=== PATIENT | female | born 1955 | race Caucasian/White ===

== ENCOUNTER → 2017-05-28 | Day surgery (SDC) | payer BC ==
[~2017-05-28] MED LIST: ATENOLOL50 MG PO; BENICAR HCT 401 EAC1 PO; CLONIDINE HCL0.1 MG PO; DAILY VITAMIN1 EAC3 PO; ESTRADIOL1 MG PO; FISH OIL PO; HYDROCHLOROTHIA25 MG PO; KLOR-CON 88 MEQ PO; LIDOCAINE HCL 2% LOCAL INJ 5 ML SDV VIAL INJ ONE; MAGNESIUM PO; MIRALAX; PROPOFOL IV EMULSION 10 MG/ML 20 ML VIAL ONE; VALSARTAN PO; VERAPAMIL HCL240 MG PO; VITAMIN D3 PO; XARELTO20 MG
--- NOTE | 2017-05-28 10:27 | Operative Report ---
DATE OF PROCEDURE: May 28, 2017 PROCEDURE PERFORMED: Esophagogastroduodenoscopy. PREOPERATIVE DIAGNOSES 1. Peptic ulcer disease. 2. Reflux esophagitis. POSTOPERATIVE DIAGNOSES 1. Hiatal hernia. 2. Reflux esophagitis. 3. Gastritis throughout the entire stomach lining. PREOPERATIVE MEDICATIONS: Consisted of MAC anesthesia. Using the [employer] video gastroscope, it was into the patient's oropharynx and advanced to the hypopharynx and down to the esophagus. The mucosa in the esophagus was normal. There was a hiatal hernia from 39-41 cm with reflux esophagitis just above it. Biopsy was obtained to rule out Cavazos's esophagus. The stomach was then entered and insufflated with air. The mucosa around the cardia, fundus, body, and antrum was viewed. There was evidence of gastritis throughout the entire stomach with erosions, but no ulcerations. Biopsies were obtained in the antrum, body and fundus of the stomach looking for H. pylori infection. The motility appeared to be normal. The pylorus was visualized and entered. The duodenal bulb and postbulbar duodenum were found to be within normal limits. The endoscope was then withdrawn back up to the stomach. Retroflexion of the EG junction, cardia, fundus below. Again, the hiatal hernia was seen, as well as the gastritis. The endoscope was placed in the body of the stomach, and then slowly withdrawn back up into the esophagus, hypopharynx, oropharynx, and out of the patient's mouth. The procedure was ended. In conclusion, we have findings of gastritis throughout the entire gastric lining, as well as a hiatal hernia with reflux esophagitis. PLAN: The patient will be started on Protonix 40 mg once a day on an empty stomach. Job#: [id number] NE
== END | disposition home or self-care (01) ==
LOC: OR 06:41
PROVIDERS: ATTEND Internal Medicine Gastroenterology
DX: K21.0 Gastro-esophageal reflux disease with esophagitis (principal); K29.70 Gastritis, unspecified, without bleeding; K44.9 Diaphragmatic hernia without obstruction or gangrene; I48.91 Unspecified atrial fibrillation; I10 Essential (primary) hypertension; I25.10 Atherosclerotic heart disease of native coronary artery without angina pectoris; R00.1 Bradycardia, unspecified; I45.10 Unspecified right bundle-branch block; Z88.0 Allergy status to penicillin; Z88.6 Allergy status to analgesic agent; Z88.2 Allergy status to sulfonamides; Z88.8 Allergy status to other drugs, medicaments and biological substances; Z01.810 Encounter for preprocedural cardiovascular examination; Z68.39 Body mass index [BMI] 39.0-39.9, adult
CPT/HCPCS: 43239; 93005; J2001

== ENCOUNTER → 2017-10-21 | Day surgery (SDC) | payer BC ==
[2017-10-13 12:55] LABS: BASOPHILS # (AUTO) 0.1 (0.0-0.1); BASOPHILS % 0.7 % (0.0-1.0); EOSINOPHILS # (AUTO) 0.1 (0.0-0.4); EOSINOPHILS % 0.9 % (0.0-6.0); HEMATOCRIT 42.8 % (34.2-44.1); HEMOGLOBIN 14.5 g/dL (12.0-16.0); LYMPHOCYTES # (AUTO) 1.7 (1.0-3.2); LYMPHOCYTES % 25.8 % (18.0-39.1); MEAN CORPUSCULAR HEMOGLOBIN 30.9 pg (28-32); MEAN CORPUSCULAR HGB CONC 33.9 g/dL (31-35); MEAN CORPUSCULAR VOLUME 91.1 fL (81-99); MONOCYTES # (AUTO) 0.5 (0.2-0.8); MONOCYTES % 8.1 % (4.4-11.3); NEUTROPHILS # (AUTO) 4.3 (2.1-6.9); NEUTROPHILS % 63.8 % (38.7-80.0); PLATELET COUNT 240 x10e3/uL (140-360); RED CELL DISTRIBUTION WIDTH 12.8 % (11.7-14.4)
[~2017-10-21] MED LIST changes: +B COMPLEX1 EACH PO; +CINNAMON PO; +DIOVAN HCT 1601 EAC1 PO; +FENTANYL CITRATE/PF 100MCG/2 ML INJ ONE; +MIDAZOLAM HCL 2 MG/2 ML VIAL ONE; +POTASSIUM CHLO10 ME1 PO; -XARELTO20 MG; +XARELTO20 MG PO; +ZANTAC150 MG PO
--- NOTE | 2017-10-21 10:00 | Operative Report ---
DATE OF PROCEDURE: October 21, 2017 PROCEDURE PERFORMED: Colonoscopy. PREOPERATIVE DIAGNOSIS: History of colon polyps. POSTOPERATIVE DIAGNOSES 1. History of colon polyps, none found. 2. Ischemic colitis. PREOPERATIVE MEDICATIONS: Consisted of MAC anesthesia. DESCRIPTION OF PROCEDURE: Using the [employer] video colonoscope, it was inserted into the patient's rectum and advanced without difficulty into the sigmoid colon and up into the descending colon. In the very proximal sigmoid colon and distal descending colon was a small area of ulceration, erythema and edema appearing much like an ischemic colitis. Biopsies were obtained. The colonoscopy was further advanced up into the descending colon, into the transverse colon, and down into the ascending colon and cecum. The colon was studied from that level back down to the rectum. No colon polyps were found. Again, the ischemic colitis area was seen and photographed. The endoscope was then withdrawn back into the patient's rectum. The procedure was ended. In conclusion, we have a history of colon polyps, none found on this exam, and ischemic colitis. Job#: [id number]
== END | disposition home or self-care (01) ==
LOC: OR 06:31
PROVIDERS: ATTEND Internal Medicine Gastroenterology
DX: Z09 Encounter for follow-up examination after completed treatment for conditions other than malignant neoplasm (principal); K52.89 Other specified noninfective gastroenteritis and colitis; K21.0 Gastro-esophageal reflux disease with esophagitis; I48.91 Unspecified atrial fibrillation; I45.10 Unspecified right bundle-branch block; I44.4 Left anterior fascicular block; I10 Essential (primary) hypertension; Z88.6 Allergy status to analgesic agent; Z88.1 Allergy status to other antibiotic agents; Z88.3 Allergy status to other anti-infective agents; Z88.0 Allergy status to penicillin; Z88.2 Allergy status to sulfonamides; Z01.812 Encounter for preprocedural laboratory examination; Z79.02 Long term (current) use of antithrombotics/antiplatelets; Z83.79 Family history of other diseases of the digestive system
CPT/HCPCS: 36415; 45380; 85025; J2001; J2250

== ENCOUNTER → 2024-04-19 | Outpatient (REF) | payer MEDICARE ==
[~2024-04-19] MED LIST changes: +CLARITIN10 MG PO; -FENTANYL CITRATE/PF 100MCG/2 ML INJ ONE; +FLONASE ALLERG9.9 ML INH; +HYDRALAZINE HCL25 MG PO; +LEXAPRO10 MG PO; -LIDOCAINE HCL 2% LOCAL INJ 5 ML SDV VIAL INJ ONE; -MIDAZOLAM HCL 2 MG/2 ML VIAL ONE; +MIRALAX17 GM PO; +MUCINEX600 MG PO; +PANTOPRAZOLE SO40 MG PO; -PROPOFOL IV EMULSION 10 MG/ML 20 ML VIAL ONE; +SPIRONOLACTONE25 MG PO; +SUCRALFATE1 GM PO; +TRAZODONE HCL50 MG PO
== END ==
LOC: US 12:58
PROVIDERS: ATTEND Otolaryngology
DX: E04.9 Nontoxic goiter, unspecified (principal); R13.13 Dysphagia, pharyngeal phase
CPT/HCPCS: 76536

== ENCOUNTER → 2024-05-10 | Outpatient (REF) | payer MEDICARE | LOC: US 10:05 | PROVIDERS: ATTEND Otolaryngology | DX: E04.9 Nontoxic goiter, unspecified (principal) | CPT/HCPCS: 10005; 10006; 88172; 88173; 88305 ==

== ENCOUNTER 2024-08-31 12:57 | Emergency (ER) | payer MEDICARE ==
[~2024-08-31] VITALS: Ht 162.6 cm; Wt 97.5 kg
[2024-08-31 13:10] VITALS: TEMP 97.9
[2024-08-31 15:08] VITALS: PULSE 80; RESP 18; O2SAT 95
== END 2024-08-31 15:12 | disposition home or self-care (01) ==
LOC: FSED 13:03
DX: S02.2XXA Fracture of nasal bones, initial encounter for closed fracture (principal); S80.02XA Contusion of left knee, initial encounter; S80.01XA Contusion of right knee, initial encounter; W01.0XXA Fall on same level from slipping, tripping and stumbling without subsequent striking against object, initial encounter; Y93.01 Activity, walking, marching and hiking; Y92.254 Theater (live) as the place of occurrence of the external cause; I10 Essential (primary) hypertension; I48.91 Unspecified atrial fibrillation; K21.9 Gastro-esophageal reflux disease without esophagitis; Z85.828 Personal history of other malignant neoplasm of skin
CPT/HCPCS: 70450; 70486; 99283